=== PATIENT | male | born 1975 | race Two or more races ===

== ENCOUNTER 2019-06-14 16:49 | Emergency (ER) | payer OTHER ==
[~2019-06-14] VITALS: Ht 167.6 cm; Wt 88.5 kg
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
--- NOTE | 2019-06-14 17:29 | NUR ---
VITALIY ALEXANDER AT BEDSIDE
--- NOTE | 2019-06-14 19:21 | NUR ---
Patient discharged to home in stable condition. Written and verbal after care instructions given. Patient verbalizes understanding of instruction.
[2019-06-14 19:26] VITALS: BP 129/68
== END 2019-06-14 19:26 | disposition home or self-care (01) ==
LOC: ER 17:00
DX: S02.2XXA Fracture of nasal bones, initial encounter for closed fracture (principal); S02.31XA Fracture of orbital floor, right side, initial encounter for closed fracture; S20.211A Contusion of right front wall of thorax, initial encounter; S09.8XXA Other specified injuries of head, initial encounter; R51 Headache; W11.XXXA Fall on and from ladder, initial encounter; Y93.89 Activity, other specified; Y92.89 Other specified places as the place of occurrence of the external cause; Y99.8 Other external cause status
CPT/HCPCS: 70450-TC; 70486-TC; 71100-TC